=== PATIENT | female | born 1960 | race Caucasian/White ===

== ENCOUNTER 2025-01-04 16:57 | Outpatient (OUT) | payer OTHER, SELFPAY ==
--- OUTSIDE RECORDS SUMMARY | 2023-07-21 05:49 | XMS_ITS | Continuity of Care Document ---
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 Name Role Phone Carlos Ybarra MD, Delvin Unavailable Unavailab le Allergies, Adverse Reactions, Alerts Substance Reaction Status Criticality No Known Allergies Active No Inform ation Medications Medication Instructions Dosage Effective Dates (start - stop) Status Comments Ozempic 2 mg/dose (8 mg/3 mL) subcutaneous pen injector - Active metoprolol tartrate 25 mg tablet - Active sertraline 25 mg tablet - Ac tive omeprazole 20 mg capsule,delayed release - Active levofloxacin 500 mg tablet - Active sulfamethoxazole 800 mg-trimethoprim 160 mg tablet - Active clindamycin HCl 300 mg capsule - Active oxycodone 5 mg tablet - Acti ve metoprolol succinate ER 25 mg tablet,extended release 24 hr - Active tobramycin 0.3 %-dexamethasone 0.1 % eye drops,suspension - Active montelukast 10 mg tablet - A ctive Ozempic 0.25 mg or 0.5 mg (2 mg/3 mL) subcutaneous pen injector - Active Sudafed 30 mg tablet TAKE FOUR TIMES DAILY NEEDED FOR COGESTION - Active Procedures Procedure Date Office/outpatient visit,est, mod 2023 X-RAY EXAM HIP UNI 2-3 VIEWS Office/outpatient visit,est, mod 2022 X-RAY EXAM HIP UNI 2-3 VIEWS Postop followup visit X-RAY EXAM HIP UNI 2-3 VIEWS Recovery Rx Total hip arthroplasty &prosthesis PA Total Hip Arthoplasty & Prosthesis PA Total Hip Arthoplasty & Prosthesis PA Total Hip Arthoplasty & Prosthesis Cane adjust/fixed with tip Walker folding wheeled w/o s Intermittent Compression Device - SELF P AY PT RE-EVAL EST PLAN CARE Therapeutic activities (one on one) Physical Tx excercises, ea 15 min Advance Directives Directive Yes / No Effective Date File Name No Information Encounters Encounter Description Practice Location Reason(s) For Visit Diagnoses Date Provider Providers Copied on Encounter [facility], [facility] [address] [place], [place], [facility] [place], tel:[phone] No Information 4 Carlos Hargrove. [address], [address], [place], [place], [id number] , [place]. tel: [phone] Office/outpa tient visit,est, mod [facility], [address] [place], [address], tel:[phone] [facility] History of right hip replacementUnila teral primary osteoarthritis, right hip 4 Luisito Zarate. [address], [place], [place], [id number] , [place]. tel: [phone] Referring Provider: Delvin Ybarra V, [address], [place], [address] . tel:[phone] Office/outpa tient visit,est, mod [facility], [facility] [place], [address], [place] tel:[phone] [facility] History of right hip replacementUnila teral primary osteoarthritis, right hip 3 Carlos Hargrove. [address], [address], [place], [place], [id number] , [place]. [phone] Referring Provider: Delvin Ybarra V, [address], [place], [address] . tel:[phone], [facility] [place], [place] tel:[phone] [facility] [place] Unilateral primary osteoarthritis, right hipPresence of right artificial hip jointAftercare following joint replacement surgery 2 Lucio Fam. [address], [address], [place], [place], [address] , [place]. tel:[phone] Referring Provider: Delvin Ybarra V, [address], [place], [address] . tel:[phone] [facility], [facility] [place], [address], [place] tel:[phone] [facility] [place] Unilateral primary osteoarthritis, right hip 2 Carlos Hargrove. [address], [address], [place], [place], [id number] , [place]. [phone] Referring Provider: Delvin Ybarra V, [address], [place], [address] . tel:[phone] [facility], [facility] [place], [address], [place] tel:[phone] [facility] No Information 2 Carlos Hargrove. [address], [place], [place], [id number] , [place]. tel:[phone] Referring Provider: Delvin Ybarra V, [address], [place], [address] . tel:[phone] [facility], [address] [place], [address], tel:[phone] No Information 2 Carlos Hargrove. [address], [address], [place], [place], [address] , [place]. tel:[phone] Referring Provider: Delvin Ybarra V, [address], [place], [address] . tel:[phone] [facility], [address] [place], [address], tel:[phone] [address] [place] [address] No Information 2 Rogers Weinstein. [address] [place], [place], [id number] , [place]. tel:[phone] Referring Provider: Delvin Ybarra V, [address], [place], [address] . tel:[phone] Family History Family Member Type Diagnosis Age At Onset No Information Payers Payer name Insurance type Covered constitution party ID [facility] - [id number] Social History Type Description Quantity Date Captured Comments Sex Female Smoking Status No Information Chief Complaint And Reason For Visit No Information Reason For Referral Reason For Referral No Information Plan Of Treatment Date Type Action Status Referral Referred To: [facility] - E1399.1 Ordered: Referrals: [facility] - E1399.1 ordered History Of Present Illness Encounter Date Complaint History Of Prese nt Illness Hip Hip Post-Op Right Hip Comments: Nupur ent S/P RTH 04/12/21 (AVL). Patient had some incision drainage and has been using wet to dry dressing. Patient removed the dressing today and feels much improved. Patient denies any pain. Functional Status Date Functional Assessmen t No Information Instructions Date Instruction Additional Infor mation No Information Assessments Type Assessment Date No Information Patient Care Teams Name Effective Dates (start - stop) Status Members No Information
--- OUTSIDE RECORDS SUMMARY | 2025-01-04 17:07 | XMS_ITS | Patient Health Record ---
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 Name Role Phone Maximiliano Marin DO Primary Care Provider Unavail able Reason For Referral No Information Medications Medication SIG (Take, Route, Frequency, Duration) Notes Start Date End Date Status B Complex Vitamins 1 DAILY ActiveCalcium 600 600 mg1 tablet DAILY ActiveCVS Natural Fish Oil1 capsule DAILY ActiveClaritin-D 12 Hour 5 mg-120 mgtablet, extended [id number] Multiple Vitamins1 DAILY Active Plan Of Treatment No Information Insurance Providers Payer Name Payer Address Payer Phone Subscriber Number Group Number Insured Name Patient Relationship to Insured Coverage Start Date Coverage End Date SELF PAY ON PATIENT DEMOGRAPHICS Jayson Robertoelf - patient is the [id number]/30/2013
--- OUTSIDE RECORDS SUMMARY | 2025-01-04 17:07 | XMS_ITS | Clinical Summary ---
Author Organization [facility] Address [address] [place] [address] Care Team Providers Care Senior Maintenance Technician Name Role Phone HowieMaximiliano rose Primary Care Provider Rosie Ron NP Unavailable [phone] Allergies Active AllergyReactionsCriticalityNoted DateCommentsAmoxicillin-Pot Clavulanate 03/06/20233409Evgsciqsqx36/09/2023 Other Reaction(s): bad dreams Gluten MealDiarrhea,Nausea And McyuqivxPzk76/30/2016 Other Reaction(s): Unknown EfaopcrvjIckugAck21/11/2023 Was ineffective in lowering/managing her A1C. Hvhembarmow18/23/2010 Other Reaction(s): hives Shellfish Vcnfmym6108/24/2021hellfish Protein-Containing Drug ProductsAnaphylaxis High06/23/2009Sulfamethoxazole-QwslqouulvmhTgykYjo56/10/2024Tetracycline 08/09/2022 Other Reaction(s): d/t pseudo tumor Medications MedicationSigDispense QuantityRefillsLast FilledStart DateEnd DateStatus aspirin 81 MG EC tablet Take 81 mg by mouth DailyActive loratadine (Claritin) 10 MG tablet Take 10 mg by mouth DailyActive Bacillus Coagulans-Inulin (Probiotic) 1-250 BILLION-MG capsule 1 (one) time each day at the same timeActive calcium carbonate 1500 (600 Ca) MG tablet 1 (one) time each day at the same timeActive Multiple Vitamins-Minerals (MULTIVITAMIN GUMMIES ADULT PO) Active docusate sodium (Stool Softener) 100 MG capsule Indications:Gastroesophageal reflux disease without esophagitisTake 1 capsule (100 mg) by mouth Daily NEEDED 90 capsule ctive Continuous Glucose Sensor (FreeStyle Dominick 3 Sensor) [facility] [place] 01/16/2024ctive Continuous Glucose Sensor (FreeStyle Dominick 3 Sensor) [facility] [place] 12/15/2023ctive triamcinolone (Kenalog) 0.1 % ointment Indications:Allergic contact dermatitis due to adhesivesApply to affected areas on the arms bid when flared. Avoid the face, armpits, and groin 60 g 5Active triamcinolone (Kenalog) 0.025 % cream Indications:Other seborrheic dermatitisApply to affected areas behind and in the ears, up to twice a day when flared, 5 days on and 2 daysoff 30 g 605Active Mounjaro 15 MG/0.5ML solution auto-injector INJECT 15MG'S UNDER THE SKIN WEEKLY ROTATE INJECTION SITES10/12/2024tive losartan-hydroCHLOROthiazide (Hyzaar) 100-12.5 MG tablet Indications:Essential hypertensionTake 1 tablet by mouth Daily 90 tablet ctive metoprolol tartrate (Lopressor) 25 MG tablet Indications:PVC (premature ventricular contraction)Take 1 tablet (25 mg) by mouth in the morning and 1 tablet (25 mg) before bedtime. 180 tablet tive omeprazole (PriLOSEC) [address] capsule Indications:Gastroesophageal reflux disease without esophagitisTake 1 capsule (20 mg) by mouth 1 (one) time each day at the same time 90 capsule ctive sertraline (Zoloft) 25 MG tablet Indications:Generalized anxiety disorderTake 1 tablet (25 mg) by mouth Daily 90 tablet ctive Active Problems ProblemNoted DateDiagnosed DateAllergic rhinitis due to nadmlgir27/30/2023 Vrhgybq8107/30/2022topic dermatitis, llcmtllejoj74/30/2023hronic sinusitis 07/30/20225962Hequjcfxbsqs10/30/3750Aehdlpvgmgjugn21/30/2023iverticulosis of large intestine without qqaocykmcn64/30/2023Essential epamuegachgc89/30/2023Fatty liver07/30/2022astroesophageal reflux hfqrypf7007/30/2022eneralized anxiety /30/2023Stress dobnvzki88/30/2023H/O: hirrytyrelvh22/30/2023 Yabiklkwfubwsb36/30/4761Krgiqfpntmkrew64/30/2023Increased glucose level 07/30/2022Irritable bowel syndrome without soqqfxou89/30/2788Srcfyqx26/30/2023 Dnzrvmfbhbcacy61/30/6153Arfyzhevdj46/30/2023VC (premature ventricular contraction)07/30/2022Seasonal fneunghwh58/30/0593Ledrouwlhwg11/30/2023Type 2 diabetes mellitus without khlpvtajqrjui82/30/2023iverticulitis of large intestine without perforation or abscess without sgapbnot66/13/2018Obesity (BMI 35.0-39.9 without comorbidity)06/13/2017 Resolved Problems ProblemNoted DateDiagnosed DateResolved DateHip pain Encounters DateTypeDepartmentCare DseoQnkkifqoqnc54/27/2025Results Follow-Up [facility] [address] [place] [phone] Rosie Ron NP CBC and differential, Comprehensive metabolic panel, Hemoglobin A1c, Additional followed-up results: 8:30 AM EDTOffice Visit [facility] [address] [place] [address] Rosie Ron NP Routine general medical examination at a health care facility (Primary Dx); Essential hypertension ; Type 2 diabetes mellitus without complication, without long-term current use of insulin (HCC); Dysuria; Mixed hyperlipidemia ; Encounter for screening for malignant neoplasm of colon; Encounter for screening mammogram for malignant neoplasm of breast; Iron deficiency; Cellulitis of left ear; PVC (premature ventricular contraction); Gastroesophageal reflux disease without esophagitis; Generalized anxiety disorder ; Myopathy, vqyapqntnic37/26/2025amboo flowsheet [facility] [address] [place] [address] Rosie Ron NP 10/26/20247005Yvnkoa18/06/2025[facility]phone [facility] [address] [place] [address] Mary Martinez MA Med Fwbphq8510/05/2024 2:30 PM EDTOffice Visit [facility] [address] [place] [address] Sarah Flores PA Melanocytic nevus of trunk (Primary Dx); Seborrheic keratosis; Dilated pore of Michael; Dermatofibroma of left lower extremity; Allergic contact dermatitis due to adhesives; Other seborrheic ugjajxwhpv56/05/2025amboo flowsheet [facility] [address] [place] [address] Sarah Flores PA 10/05/2024Travelfrom Last 3 Months Immunizations ImmunizationAdministration DatesNext DueInfluenza, Split (incl. purified surface antigen)01/19/2014Influenza, Aemyqwpnhtj85/26/2023,03/16/2019,01/06/2018, 01/19/2014Influenza, injectable, tfxbmaoqwybk82/06/2018Influenza, injectable, quadrivalent, preservative free12/26/2022,03/16/2019,01/06/2018Pneumococcal Conjugate PCV 4Pneumococcal Conjugate, Yxcokcctxwf50/22/2024 Family History Medical HistoryRelationNameCommentsfibroid uterusDaughterdenies celiac and uterine fibroids in father's side of familyAllergiesFatherCancerFatherprostate, lungHeart diseaseFatherCAD, MIHyperlipidemiaFatherHypertensionFatherCancer Father's BrotherDiabetesFather's BrotherHeart diseaseFather's Brothercad HyperlipidemiaFather's BrotherHypertensionFather's BrotherCancerMotherLung cancerHeart diseaseMotherCAD, early MIHypertensionMotherOsteoporosisMother Polymyalgia rheumaticaMotherCancerPaternal GrandfatherCeliac diseaseNeg Hx FibroidsNeg HxMelanomaNeg HxUterine cancerNeg HxRelationNameStatusComments DaughterAliveFatherDeceasedFather's BrotherAliveMaternal GrandfatherDeceased Maternal GrandmotherDeceasedMotherAlivePaternal GrandfatherDeceasedPaternal GrandmotherDeceased Social History Tobacco UseTypesPacks/DayYears UsedDateSmoking Tobacco: NeverSmokeless Tobacco: Never Tobacco Cessation:Counseling Given: Not Answered Alcohol UseStandard Drinks/WeekCommentsNever0 (1 standard drink = 0.6 oz pure alcohol)Caffeine: 2-3 cups/tnpK1040 Health LiteracyAnswerDate RecordedHow often do you need to have someone help you when you read instructions, pamphlets, or other written material from your doctor or pharmacy?Never11/16/2023Humiliation, Afraid, Rape, and Kick questionnaireAnswerDate RecordedWithin the last year, have you been afraid of your partner or ex-partner?No09/30/2022Within the last year, have you been humiliated or emotionally abused in other ways by your partner or ex-partner?Yes09/30/2022Within the last year, have you been kicked, hit, slapped, or otherwise physically hurt by your partner or ex-partner?No 09/30/2022Within the last year, have you been raped or forced to have any kind of sexual activity by your partner or ex-partner?No09/30/2022Social Connection and Isolation PanelAnswerDate RecordedIn a typical week, how many times do you talk on the phone with family, friends, or neighbors?More than three times a week11/16/2023How often do you get together with friends or relatives?Once a week11/16/2023How often do you attend mosque or restorationist services?More than 4 times per year4Do you belong to any clubs or organizations such as mosque groups, unions, fraternal or athletic groups, or school groups?Yes 11/16/2023How often do you attend meetings of the clubs or organizations you belong to?More than 4 times per year4Are you , , , , never , or living with a partner?Bjdifxe1911/16/2023 AUDIT-CAnswerDate RecordedQ1: How often do you have a drink containing alcohol? Monthly or less11/16/2023Q2: How many drinks containing alcohol do you have on a typical day when you are drinking?1 or Q3: How often do you have six or more drinks on one occasion?Never11/16/2023Overall Financial Resource Strain (CARDIA)AnswerDate RecordedHow hard is it for you to pay for the very basics like food, housing, medical care, and heating?Not hard at all11/16/2023HQ-2 AnswerDate RecordedPatient Health Questionnaire-2 Jggdv865[facility] [place] [facility] Occupational [facility] - Occupational Stress QuestionnaireAnswerDate RecordedDo you feel stress - tense, restless, nervous, or anxious, or unable to sleep at night because yourmind is troubled all the time - these days?To some cljhsn8211/16/2023Exercise Vital SignAnswerDate RecordedOn average, how many days per week do you engage in moderate to strenuous exercise (like a brisk walk)?3 days11/16/2023On average, how many minutes do you engage in exercise at this level?40 min11/16/2023Hunger Vital SignAnswerDate RecordedWithin the past 12 months, you worried that your food would run out before you got the money to buy more.Never true11/16/2023Within the past 12 months, the food you bought just didn't last and you didn't have money to get more.Never true11/16/2023RAPARE - TransportationAnswerDate RecordedIn the past 12 months, has lack of transportation kept you from medical appointments or from getting medications?No 11/16/2023In the past 12 months, has lack of transportation kept you from meetings, work, or from getting things needed for daily living?No11/16/2023 Housing Stability Vital SignAnswerDate RecordedIn the last 12 months, was there a time when you were not able to pay the mortgage or rent on time?No09/30/2022In the last 12 months, how many places have you lived?In the last 12 months, was there a time when you did not have a steady place to sleep or slept [facility] (including now)?No09/30/2022Housing Stability Vital SignAnswerDate RecordedIn the last 12 months, was there a time when you were not able to pay the mortgage or rent on time?No11/16/2023In the past 12 months, how many times have you moved where you were living?t any time in the past 12 months, were you homeless or living in a fdc (including now)?11/16/2023 CommentsUnknownSex and Gender InformationValueDate RecordedSex Assigned at BirthNot on fileLegal GodVaahan81/15/2023 7:16 PM EDTGender IdentityNot on fileSexual OrientationNot on file Last Filed Vital Signs Vital SignReadingTime TakenCommentsBlood Zbzthvtt924/8410/26/2024 8:44 AM EDT Cyvgp527910/26/2024 8:44 AM JAYRvdvizigpnt23.6 ??C (97.8 ??F)10/26/2024 8:44 AM EDTRespiratory Vdhp731810/11/2022 7:38 AM EDTOxygen Ldeahxsbek94%10/26/2024 8:44 AM EDTInhaled Oxygen Concentration--Zmtcqw65.6 kg (173 lb 3.2 oz)10/26/2024 8:44 AM ALMGoqciw532.5 cm (5' 2 )10/26/2024 8:44 AM EDTBody Mass Index31.68010/26/2024 8:44 AM EDT Plan of Treatment DateTypeDepartmentCare Team (Latest Contact Info)Zcgksswgqvy62/11/2026 8:50 AM EDTOffice Visit [facility] [address] [facility] [place] [address] Sarah Flores, PA [address] [place] [address] Health MaintenanceDue DateLast DoneCommentsCT Eqbfzjhppizx63/07/1963FIT-DNA 1962FIT1962FOBT1962 4573Rgdcnructiizn51/07/1963MMR Vaccines (1 of 1 - Standard series)06/08/1963DTaP/Tdap/Td Vaccines (1 - Tdap)1969Hepatitis A Vaccines (1 of 2 - Risk 2-dose series)1981Hepatitis B Vaccines (1 of 3 - Risk 3-dose series)06/07/20223308Imtqgxwdzlp10/23/16304904/25/2014Colorectal Cancer Cjekleaxn90/23/5426Cenxexnjt63, 10/16/2023, 04/11/2022, Additional history existsCOVID-19 Vaccine ( season)2024 03/06/2021, 04/09/2020, 03/19/2020Influenza Vaccine (#1), 12/26/2022, 03/16/2019, Additional history existsDiabetes: Hemoglobin A1C /, 05/17/2024, 11/17/2023, Additional history existsDiabetes: Retinopathy Mwmxtfxet62/04/066149/06/2023, 08/29/2021, 08/03/2020, Additional history existsDiabetes: Urine Protein Emwphtygc88/26/485240/, 05/17/2024, 11/17/2023, Additional history existsCervical Cancer ScreeningDiscontinuedPap LpobbAprawempquxh30/09/2019, 07/09/2018Pneumococcal Vaccine: Pediatrics (0 to 5 Years) and At-Risk Patients (6 to 64 Years)Attkrngkb21/22/2024, 05/23/2023HIB VaccinesAged OutNo longer eligible based on patient's age to complete this topic HPV VaccinesAged OutNo longer eligible based on patient's age to complete this topicHPV/CotestDiscontinuedIPV VaccinesAged OutNo longer eligible based on patient's age to complete this topicMeningococcal B VaccineAged OutNo longer eligible based on patient's age to complete this topicMeningococcal VaccineAged OutNo longer eligible based on patient's age to complete this topicRotavirus VaccinesAged OutNo longer eligible based on patient's age to complete this topic Goals GoalPatient Goal TypeAssociated ProblemsRecent ProgressPatient-Stated?Author Help patient manage antidepressant medication Care PlanPatient on antidepressant monitoring Mary Beth Keene, SHERRI Baseline PHQ-9 Care PlanBaseline PHQ-9Mary Beth Gonzalez RN Procedures Procedure NamePriorityDate/TimeAssociated UftwsbbvgRvxfvojkYBGNChqyjvq45/26/2025 9:02 AM EDT IRON, JAPBQPhwusam31/26/2025 9:02 AM EDT Iron deficiency URINALYSIS TUQTAHNjcnbdl69/26/2025 9:02 AM EDT Routine general medical examination at a [facility] Essential hypertension Type 2 diabetes mellitus without complication, without long-term current use of insulin (HCC) Dysuria Mixed hyperlipidemia KFGTztzfbm94/26/2025 9:02 AM EDT Routine general medical examination at a [facility] facility Essential hypertension Type 2 diabetes mellitus without complication, without long-term current use of insulin (HCC) Dysuria Mixed hyperlipidemia MICROALBUMIN / CREATININE URINE HPLBPNblrrcl95/26/2025 9:02 AM EDT Routine general medical examination at a [facility] facility Essential hypertension Type 2 diabetes mellitus without complication, without long-term current use of insulin (HCC) Dysuria Mixed hyperlipidemia LIPID UPAIRMdxugfo34/26/2025 9:02 AM EDT Routine general medical examination at a [facility] Essential hypertension Type 2 diabetes mellitus without complication, without long-term current use of insulin (HCC) Dysuria Mixed hyperlipidemia HEMOGLOBIN X9DQkenika94/26/2025 9:02 AM EDT Routine general medical examination at a [facility] Essential hypertension Type 2 diabetes mellitus without complication, without long-term current use of insulin (HCC) Dysuria Mixed hyperlipidemia COMPREHENSIVE METABOLIC VLGCKYzqraau20/26/2025 9:02 AM EDT Routine general medical examination at a [facility] Essential hypertension Type 2 diabetes mellitus without complication, without long-term current use of insulin (HCC) Dysuria Mixed hyperlipidemia CBC (INCLUDES DIFF/PLT)Cqefozp5010/26/2024 9:02 AM EDT Routine general medical examination at a health care facility Essential hypertension Type 2 diabetes mellitus without complication, without long-term current use of insulin (HCC) Dysuria Mixed hyperlipidemia BI MAMMOGRAM SCREENING TOMOSYNTHESIS NEGODEIHWHamnqub64/09/2023 COLOR FUNDUS PHOTOGRAPHY - OU - BOTH LLCPFfjvtpq15/29/2022 12:00 PM EDT PCMTSLNKXSDTkbdjsd88/23/2015 12:00 PM EST from Last 3 Months or Most Recently Relevant to Health Maintenance Results * NOTE (10/26/2024 9:02 AM EDT)ComponentValueRef RangeTest MethodAnalysis Time Performed AtPathologist SignatureNOTEQUESTComment: This urine was analyzed for the presence of WBC, RBC, bacteria, casts, and other formed elements. Only those elements seen were reported. Specimen (Source)Anatomical Location / LateralityCollection Method / Volume Collection TimeReceived Time10/26/2024 9:02 AM EDT10/26/2024 9:02 AM EDT Narrative [facility] - 10/27/2024 12:35 PM EDT FASTING:YES FASTING: YES Resulting Agency Comment Performing Organization Information ?Site ID: QPT ?Name: [facility] ?Address: [address] [place] [address], [address] [place] [phone] ?Director: Abdulaziz Santos MD Authorizing ProviderResult TypeResult StatusRachel E Fruth NPQUESTFinal Result Performing OrganizationAddressCity/State/ZIP CodePhone Number [facility] * Microalbumin / creatinine urine ratio (10/26/2024 9:02 AM EDT)ComponentValue Ref RangeTest MethodAnalysis TimePerformed AtPathologist SignatureCREATININE, RANDOM [id number] - 275 mg/dLQUESTALBUMIN, URINE1.3See Note: mg/dLQUEST Comment: Reference Range: Reference Range Not established ALBUMIN/CREATININE RATIO, RANDOM URINE5<30 mg/g creatQUESTComment: The ADA defines abnormalities in albumin excretion as follows: Albuminuria Category ?Result (mg/g creatinine) Normal to Mildly increased <30 Moderately increased ? 30-299 Severely increased > OR = 300 The ADA recommends that at least two of three specimens collected within a 3-6 month period be abnormal before considering a patient to be within a diagnostic category. Specimen (Source)Anatomical Location / LateralityCollection Method / Volume Collection TimeReceived TimeUrineUrine specimen obtained by clean catch procedure / Bouiwvm9710/26/2024 9:02 AM EDT10/26/2024 9:02 AM EDT Narrative [facility] - 10/27/2024 12:35 PM EDT FASTING:YES FASTING: YES Resulting Agency Comment Performing Organization Information ?Site ID: QPT ?Name: [email or web address] ?Address: [address] [place] [address], [address] [place] [phone] ?Director: Abdulaziz Santos MD Authorizing ProviderResult TypeResult StatusRachel E Fruth NPLAB URINE ORDERABLESFinal ResultPerforming OrganizationAddressCity/State/[facility] CodePhone Number [facility] * (ABNORMAL) Urinalysis with reflex microscopic (10/26/2024 9:02 AM EDT) ComponentValueRef RangeTest MethodAnalysis TimePerformed AtPathologist SignatureCOLORDARK YELLOWYELLOWQUESTAPPEARANCECLOUDY(A)CLEARQUESTSPECIFIC GRAVITY1.0311.001 - 1.035QUESTPH< OR = 5.0(A)5.0 - 8.0QUESTGLUCOSENEGATIVE NEGATIVEQUESTBILIRUBINNEGATIVENEGATIVEQUESTKETONESNEGATIVENEGATIVEQUESTOCCULT BLOODNEGATIVENEGATIVEQUESTPROTEINTRACE(A)NEGATIVEQUESTNITRITENEGATIVENEGATIVE QUESTLEUKOCYTE ESTERASENEGATIVENEGATIVEQUESTWBCNONE SEEN< OR = 5 /HPFQUESTRBC NONE SEEN< OR = 2 /HPFQUESTSQUAMOUS EPITHELIAL CELLS0-5< OR = 5 /HPFQUEST BACTERIANONE SEENNONE SEEN /HPFQUESTHYALINE CASTNONE SEENNONE SEEN /LPFQUEST Specimen (Source)Anatomical Location / LateralityCollection Method / Volume Collection TimeReceived TimeUrineUrine specimen obtained by clean catch procedure / Ltzwmzq6410/26/2024 9:02 AM EDT10/26/2024 9:02 AM EDT Narrative [facility] - 10/27/2024 12:35 PM EDT FASTING:YES FASTING: YES Resulting Agency Comment Performing Organization Information ?Site ID: QPT ?Name: [facility] ?Address: [address], [address] [place] [phone] ?Director: Abdulaziz Santos MD Authorizing ProviderResult TypeResult StatusRachel E Fruth NPLAB URINE ORDERABLESFinal ResultPerforming OrganizationAddressCity/State/ZIP CodePhone Number [facility] * (ABNORMAL) CBC and differential (10/26/2024 9:02 AM EDT)ComponentValueRef RangeTest MethodAnalysis TimePerformed AtPathologist SignatureWHITE BLOOD CELL COUNT5.23.8 - 10.8 Thousand/uLQUESTRED BLOOD CELL COUNT4.463.80 - 5.10 Million/mPBOROODTXQJORKHT47.911.7 - 15.5 g/bSRYKBKXUKWQQFLJA63.935.0 - 45.0 % EUXFCWMP92.780.0 - 100.0 cXCPZIBSNV46.927.0 - 33.0 eeUDILMXLIG24.5(L)32.0 - 36.0 g/dLQUESTComment: For adults, a slight decrease in the calculated MCHC value (in the range of 30 to 32 g/dL) is most likely not clinically significant; however, it should be interpreted with caution in correlation with other red cell parameters and the patient's clinical condition. RDW13.411.0 - 15.0 %QUESTPLATELET VBQAA671119 - 400 Thousand/uLQUESTMPV8.97.5 - 12.5 fLQUESTABSOLUTE NEUTROPHILS2,6621,500 - 7,800 cells/uLQUESTABSOLUTE LYMPHOCYTES1,886568 - 3,900 cells/uLQUESTABSOLUTE RZLVZECGB555029 - 950 cells/uL QUESTABSOLUTE JJORTHCBUHF57925 - 500 cells/uLQUESTABSOLUTE YHOHRHJBL850 - 200 cells/uTRQXPEQRMDYSSVVRU40.2%MUDBWSXDVDHNCKLJ67.5%QUESTMONOCYTES6.9%QUEST EOSINOPHILS5.2%QUESTBASOPHILS1.2%QUESTSpecimen (Source)Anatomical Location / LateralityCollection Method / VolumeCollection TimeReceived TimeBloodVenous blood specimen / Chkfcib4810/26/2024 9:02 AM EDT10/26/2024 9:02 AM EDT Narrative [facility] - 10/27/2024 12:35 PM EDT FASTING:YES FASTING: YES Resulting Agency Comment Performing Organization Information ?Site ID: QPT ?Name: [facility] ?Address: [address] [place] [address], [address] [place] [address] ?Director: Abdulaziz Santos MD Authorizing ProviderResult TypeResult StatusRachel E Fruth NPLAB BLOOD ORDERABLESFinal ResultPerforming OrganizationAddressty/State/[facility] CodePhone Number [facility] * TSH (10/26/2024 9:02 AM EDT)ComponentValueRef RangeTest MethodAnalysis Time Performed AtPathologist SignatureTSH1.280.40 - 4.50 mIU/LQUESTSpecimen (Source)Anatomical Location / LateralityCollection Method / VolumeCollection TimeReceived TimeBloodVenous blood specimen / Dluvjhj8810/26/2024 9:02 AM EDT 10/26/2024 9:02 AM EDT Narrative [facility] - 10/27/2024 12:35 PM EDT FASTING:YES FASTING: YES Resulting Agency Comment Performing Organization Information ?Site ID: QPT ?Name: [facility] ?Address: [address] [place] [address], [address] [place] [address] ?Director: Abdulaziz Santos MD Authorizing ProviderResult TypeResult StatusRachel E Fruth NPLAB BLOOD ORDERABLESFinal ResultPerforming OrganizationAddPrime Healthcare Servicesty/[facility]/ZIP CodePhone Number [facility] * Iron level (10/26/2024 9:02 AM EDT)ComponentValueRef RangeTest MethodAnalysis TimePerformed AtPathologist SignatureIRON, MDHPV5713 - 160 mcg/dLQUESTSpecimen (Source)Anatomical Location / LateralityCollection Method / VolumeCollection TimeReceived TimeBloodVenous blood specimen / Zervpte0410/26/2024 9:02 AM EDT 10/26/2024 9:02 AM EDT Narrative [facility] - 10/27/2024 12:35 PM EDT FASTING:YES FASTING: YES Resulting Agency Comment Performing Organization Information ?Site ID: QPT ?Name: [facility] ?Address: [address] [place] [address] ?Director: Abdulaziz Santos MD Authorizing ProviderResult TypeResult StatusRachel E Fruth NPLAB BLOOD ORDERABLESFinal ResultPerforming OrganizationAddressty/[facility] CodePhone Number [facility] * Hemoglobin A1c (10/26/2024 9:02 AM EDT)ComponentValueRef RangeTest Method Analysis TimePerformed AtPathologist SignatureHemoglobin A1C5.5<5.7 %QUEST Comment: For the purpose of screening for the presence of diabetes: <5.7% Consistent with the absence of diabetes 5.7-6.4% ?Consistent with increased risk for diabetes ?(prediabetes) > or =6.5% Consistent with diabetes This assay result is consistent with a decreased risk of diabetes. Currently, no consensus exists regarding use of hemoglobin A1c for diagnosis of diabetes in children. According to [place] [employer] (ADA) guidelines, hemoglobin A1c <7.0% represents optimal control in non- diabetic patients. Different metrics may apply to specific patient populations. Standards of Medical Care in Diabetes(ADA). ?? Specimen (Source)Anatomical Location / LateralityCollection Method / Volume Collection TimeReceived TimeBloodVenous blood specimen / Hflaoaf6910/26/2024 9:02 AM EDT10/26/2024 9:02 AM EDT Narrative [facility] - 10/27/2024 12:35 PM EDT FASTING:YES FASTING: YES Resulting Agency Comment Performing Organization Information ?Site ID: QPT ?Name: [facility] ?Address: Mara Lundy , [address] [place] [address] ?Director: Abdulaziz Santos MD Authorizing ProviderResult TypeResult StatusRachel E Fruth NPLAB BLOOD ORDERABLESFinal ResultPerforming OrganizationAddressCity/State/ZIP CodePhone Number QUEST * (ABNORMAL) Lipid panel (10/26/2024 9:02 AM EDT)ComponentValueRef RangeTest MethodAnalysis TimePerformed AtPathologist SignatureCHOLESTEROL, BOXAD855<200 mg/dLQUESTHDL STRZZGHHBRC28> OR = 50 mg/oFWZTXEAIOAGACWOZFBT535(H)<150 mg/dL QUESTComment: If a non-fasting specimen was collected, consider repeat triglyceride testing on a fasting specimen if clinically indicated. Osvaldo et al. J. of Clin. Lipidol. 2015;9:129-169. LDL THGQOJVSLEN65ed/dL (calc)QUESTComment: Reference range: <100 Desirable range <100 mg/dL for primary prevention; <70 mg/dL for patients with CHD or diabetic patients with > or = 2 CHD risk factors. LDL-C is now calculated using the Jose calculation, which is a validated novel method providing better accuracy than the Friedewald equation in the estimation of LDL-C. Juan TOVAR et al. NELLY. 2013;310(19): 6128-7530 (http://education.[employer].myinfoQ/faq/BCG555) CHOL/HDLC RATIO3.3<5.0 (calc)QUESTNON HDL YVKPODEJMDZ960<130 mg/dL (calc)QUEST Comment: For patients with diabetes plus 1 major ASCVD risk factor, treating to a non-HDL-C goal of <100 mg/dL (LDL-C of <70 mg/dL) is considered a therapeutic option. Specimen (Source)Anatomical Location / LateralityCollection Method / Volume Collection TimeReceived TimeBloodVenous blood specimen / Qxqfqly2610/26/2024 9:02 AM EDT10/26/2024 9:02 AM EDT Narrative [facility]ST - 10/27/2024 12:35 PM EDT FASTING:YES FASTING: YES Resulting Agency Comment Performing Organization Information ?Site ID: QPT ?Name: [facility] ?Address: [address] [place] [address], [address] [place] [phone] ?Director: Abdulaziz Santos MD Authorizing ProviderResult TypeResult StatusRachel E Fruth NPLAB BLOOD ORDERABLESFinal ResultPerforming OrganizationAddressCity/State/ZIP CodePhone Number QUEST * (ABNORMAL) Comprehensive metabolic panel (10/26/2024 9:02 AM EDT)Component ValueRef RangeTest MethodAnalysis TimePerformed AtPathologist SignatureGlucose 141(H)65 - 99 mg/dLQUESTComment: ? Fasting reference interval For someone without known diabetes, a glucose value >125 mg/dL indicates that they may have diabetes and this should be confirmed with a follow-up test. IRF686 - 25 mg/dLQUESTCreatinine0.630.50 - 1.05 mg/gLNXOIWIFIG901> OR = 60 mL/min/1.92q6XJLLWRRQ/CREATININE RATIOSEE NOTE: (calc)QUESTComment: ?? Not Reported: BUN and Creatinine are within ?? reference range. ? Gopxxc443986 - 146 mmol/LQUESTPotassium, Bld4.13.5 - 5.3 mmol/DMZQSIEnxxsqaq107 98 - 110 mmol/LQUESTCarbon Sdjdcrd1704 - 32 mmol/LQUESTCalcium9.38.6 - 10.4 mg/dLQUESTPROTEIN, TOTAL7.06.1 - 8.1 g/dLQUESTALBUMIN4.53.6 - 5.1 g/dLQUEST GLOBULIN2.51.9 - 3.7 g/dL (calc)QUESTALBUMIN/GLOBULIN RATIO1.81.0 - 2.5 (calc) QUESTBILIRUBIN, TOTAL0.30.2 - 1.2 mg/dLQUESTALKALINE MPLYSRKSLGS0286 - 153 U/L VUZIKORY3962 - 35 U/RFXQBBCMW806 - 29 U/LQUESTSpecimen (Source)Anatomical Location / LateralityCollection Method / VolumeCollection TimeReceived TimeBlood Venous blood specimen / Siltgcm4910/26/2024 9:02 AM EDT10/26/2024 9:02 AM EDT Narrative [facility] - 10/27/2024 12:35 PM EDT FASTING:YES FASTING: YES Resulting Agency Comment Performing Organization Information ?Site ID: QPT ?Name: [facility] ?Address: [address] [place] [address], [address] [place] [phone] ?Director: Abdulaziz Santos MD Authorizing ProviderResult TypeResult StatusRachel E Fruth NPLAB BLOOD ORDERABLESFinal ResultPerforming OrganizationAddressCity/State/ZIP CodePhone Number QUEST * Bilateral screening mammogram with tomosynthesis (04/11/2022)Anatomical Region LateralityModalityBreastBilateralMammographySpecimen (Source)Anatomical Location / LateralityCollection Method / VolumeCollection TimeReceived Time Narrative 04/11/2022 12:00 AM EST PERFORMED AT [facility] LOCATION:[place] [address] Performed at: EXAMINATION: SCREENING DIGITAL BILATERAL MAMMOGRAM WITH TOMOSYNTHESIS 04/10/2022 TECHNIQUE: Screening mammography was performed with tomosynthesis including MLO and CC views of the bilateral breasts. Computer aided detection was used for the interpretation of this exam. COMPARISON: 05 April 2020; 17 November 2018 HISTORY: Screening. Positive family history of breast cancer; mother at 81 sister at 57 and daughter at 36 with breast cancer.No hormonal replacement therapy. ??No prior breast interventions. FINDINGS: The breasts are composed of scattered fibroglandular density. ??No skin thickening nipple contour changes suspicious calcifications areas of architectural distortion or significant interval changes are noted. IMPRESSION: No evidence of malignancy. ??Advise annual screening mammography. BI-RADS 1 BIRADS: BIRADS - CATEGORY 1 Negative no evidence of malignancy. ??Normal interval follow-up is recommended in 12 months. OVERALL ASSESSMENT - NEGATIVE A letter of notification will be sent to the patient regarding the results. The [employer] recommends annual mammograms for women 40 years and older. Interpreted by: Venus Miller MD Signed by: Venus Miller MD 04/11/[address] [place] [id number] Procedure Note CONVERSION, GENERIC - 09/06/2022 PERFORMED AT [facility] LOCATION:[place] [address] Performed at: EXAMINATION: SCREENING DIGITAL BILATERAL MAMMOGRAM WITH TOMOSYNTHESIS 04/10/2022 TECHNIQUE: Screening mammography was performed with tomosynthesis including MLO andCC views of the bilateral breasts. Computer aided detection was used forthe interpretation of this exam. COMPARISON: 05 April 2020; 17 November 2018 HISTORY: Screening. Positive family history of breast cancer; mother at 81 sisterat 57 and daughter at 36 with breast cancer.No hormonal replacement therapy.No prior breast interventions. FINDINGS: The breasts are composed of scattered fibroglandular density. No skin thickening nipple contour changes suspicious calcifications areas of architectural distortion or significant interval changes are noted. IMPRESSION: No evidence of malignancy. Advise annual screening mammography. BI-RADS 1 BIRADS: BIRADS - CATEGORY 1 Negative no evidence of malignancy. Normal interval follow-up is recommended in 12 months. OVERALL ASSESSMENT - NEGATIVE A letter of notification will be sent to the patient regarding theresults. The [employer] recommends annual mammograms for women40 years and older. Interpreted by: Venus Miller MD Signed by: Venus Miller MD 04/11/[address] [place] [phone] Authorizing ProviderResult TypeResult StatusRachel E Fruth NPIMG BI PROCEDURES Final Result * Color Fundus Photography - OU - Both Eyes (08/29/2021 12:00 PM EDT)Anatomical RegionLateralityModalityHeadFundus PhotographySpecimen (Source)Anatomical Location / LateralityCollection Method / VolumeCollection TimeReceived Time 08/29/2021 12:00 PM EDT Narrative 08/29/2021 12:00 PM EDT PERFORMED AT [facility] LOCATION:[id number] [facility] Procedure Note CONVERSION, GENERIC - 07/17/2022 PERFORMED AT [facility] LOCATION:[id number] [facility] Authorizing ProviderResult TypeResult StatusRachel E Fruth NPOPHTH PHOTOGRAPHY Final Result * Colonoscopy (04/25/2014 12:00 PM EST)Anatomical RegionLateralityModality EndoscopySpecimen (Source)Anatomical Location / LateralityCollection Method / VolumeCollection TimeReceived Time04/25/2014 12:00 PM EST Narrative 04/25/2014 12:00 PM EST PERFORMED AT [facility] LOCATION:[id number] [facility] Procedure Note CONVERSION, GENERIC - 07/18/2022 PERFORMED AT [facility] LOCATION:[id number] [facility] Authorizing ProviderResult TypeResult StatusGerri Ariane Murphy NPENDOSCOPY PROCEDURE ORDERABLESFinal Result from Last 3 Months or Most Recently Relevant to Health Maintenance Additional Health Concerns Active ProblemsNoted DateDiagnosed DatePatient on antidepressant monitoring plan 07/14/2023aseline PHQ-9007/14/2023 Insurance Care Teams Team MemberRelationshipSpecialtyStart DateEnd Date Maximiliano Denise DO [address] [place] [address] PCP - GeneralFamily Medicine08/08/22 Rosie Ron NP [address] [place] [address] Nurse PractitionerFamily Medicine08/08/22
--- OUTSIDE RECORDS SUMMARY | 2025-01-04 17:07 | XMS_ITS | Encounter Summary ---
Author Organization [facility] Address [address] [place] [address] Care Team Providers Care Professor Of French Name Role Phone HowieMaximiliano rose Primary Care Provider Rosie Ron PAIN MEDICINE PHYSICIAN Unavailable [phone] Encounter Details DateTypeDepartmentCare Team (Latest Contact Info)Ppzrjexdaqf67/15/2024Clinisync Result Encounter [facility] Unsolicited Rosie Ron, PAIN MEDICINE PHYSICIAN [address] [place] [address] Social History Tobacco UseTypesPacks/DayYears UsedDateSmoking Tobacco: NeverSmokeless Tobacco: NeverAlcohol UseStandard Drinks/WeekCommentsNever0 (1 standard drink = 0.6 oz pure alcohol)Caffeine: 2-3 cups/tmjD8828 Health LiteracyAnswerDate RecordedHow often do you need to have someone help you when you read instructions, pamphlets, or other written material from your doctor or pharmacy?Never 11/16/2023Humiliation, Afraid, Rape, and Kick questionnaireAnswerDate Recorded Within the last year, have you been afraid of your partner or ex-partner?No 09/30/2022Within the last year, have you been humiliated or emotionally abused in other ways by your partner or ex-partner?Yes09/30/2022Within the last year, have you been kicked, hit, slapped, or otherwise physically hurt by your partner or ex-partner?No09/30/2022Within the last year, have you been raped or forced to have any kind of sexual activity by your partner or ex-partner?No09/30/2022 Social Connection and Isolation PanelAnswerDate RecordedIn a typical week, how many times do you talk on the phone with family, friends, or neighbors?More than three times a week11/16/2023How often do you get together with friends or relatives?Once a week11/16/2023How often do you attend denominational or rastafarian services?More than 4 times per year11/16/2023o you belong to any clubs or organizations such as denominational groups, unions, fraternal or athletic groups, or school groups?Yes11/16/2023How often do you attend meetings of the clubs or organizations you belong to?More than 4 times per year11/16/2023re you , , , , never , or living with a partner? 11/16/2023UDIT-CAnswerDate RecordedQ1: How often do you have a drink containing alcohol?Monthly or less11/16/2023Q2: How many drinks containing alcohol do you have on a typical day when you are drinking?1 or Q3: How often do you have six or more drinks on one occasion?Never11/16/2023Overall Financial Resource Strain (CARDIA)AnswerDate RecordedHow hard is it for you to pay for the very basics like food, housing, medical care, and heating?Not hard at all 11/16/2023HQ-2AnswerDate RecordedPatient Health Questionnaire-2 Score0 04/13/2024[facility] [place] [facility] Occup[facility] - Occupational Stress QuestionnaireAnswerDate RecordedDo you feel stress - tense, restless, nervous, or anxious, or unable to sleep at night because yourmind is troubled all the time - these days?To some dhbhun3011/16/2023Exercise Vital SignAnswerDate Recorded On average, how many days per week do you engage in moderate to strenuous exercise (like a brisk walk)?3 days11/16/2023On average, how many minutes do you engage in exercise at this level?40 min11/16/2023Hunger Vital SignAnswerDate RecordedWithin the past 12 months, you worried that your food would run out before you got the money to buymore.Never true11/16/2023Within the past 12 months, the food you bought just didn't last and you didn't have money to get more.Never true11/16/2023RAPARE - TransportationAnswerDate RecordedIn the past 12 months, has lack of transportation kept you from medical appointments or from getting medications?No11/16/2023In the past 12 months, has lack of transportation kept you from meetings, work, or from getting things needed for daily living?No11/16/2023Housing Stability Vital SignAnswerDate RecordedIn the last 12 months, was there a time when you were not able to pay the mortgage or rent on time?No09/30/2022In the last 12 months, how many places have you lived?1 09/30/2022In the last 12 months, was there a time when you did not have a steady place to sleep or slept in [facility] (including now)?No09/30/2022Housing Stability Vital SignAnswerDate RecordedIn the last 12 months, was there a time when you were not able to pay the mortgage or rent on time?No11/16/2023In the past 12 months, how many times have you moved where you were living? At any time in the past 12 months, were you homeless or living in a fdc (including now)?No11/16/2023CommentsUnknownSex and Gender Information ValueDate RecordedSex Assigned at BirthNot on fileLegal PjuJuazjz54/15/2023 7:16 PM EDTGender IdentityNot on fileSexual OrientationNot on filedocumented as of this encounter Functional Status * AUDIT-C ScoreAnswerDate of QnivvklapxPznuzi066/15/2024 9:00 AM Maximo, Generic * Q1: How often do you have a drink containing alcohol?AnswerDate of Assessment AuthorMonthly or less11/16/2023 9:00 AM Maximo Generic * Q2: How many drinks containing alcohol do you have on a typical day when you are drinking?AnswerDate of AssessmentAuthor1 or 9:00 AM EDT Mychart, Generic * Q3: How often do you have six or more drinks on one occasion?AnswerDate of QfwxyeujqwCuoqqqCmcig24/15/2024 9:00 AM EDTMychart, Generic * Over the past 2 weeks, how often have you been bothered by any of the following problems?QuestionAnswerDate of AssessmentAuthorLittle interest or pleasure in doing thingsNot at all04/13/2024 3:38 PM Rosie Awad NP Feeling down, depressed, or hopelessNot at all04/13/2024 3:38 PM Rosie Awad NPPatient Health Questionnaire-2 Tjtat773 3:38 PM Rosie Awad NP documented as of this encounter Plan of Treatment DateTypeDepartmentCare Team (Latest Contact Info)Mxqgsnwsolg75/11/2026 8:50 AM EDTOffice Visit [facility] [address] [place] [id number] Sarah [place], [place] [address] [place] [address] documented as of this encounter Goals GoalPatient Goal TypeAssociated ProblemsRecent ProgressPatient-Stated?Author Help patient manage antidepressant medication Care PlanPatient on antidepressant monitoring Mary Beth Keene RN Baseline PHQ-9 Care PlanBaseline PHQ-9Mary Beth Gonzalez RNdocumented as of this encounter Procedures Procedure NamePriorityDate/TimeAssociated DiagnosisCommentsMAM BENIGNO DIGITAL SCREEN SELF REFERRAL W OR WO CAD XEBZNVDVL55/15/2024 6:28 PM EDT documented in this encounter Results * CLAY BENIGNO DIGITAL SCREEN SELF REFERRAL W OR WO CAD BILATERAL (10/16/2023 6:28 PM EDT)Anatomical RegionLateralityModalityOtherSpecimen (Source)Anatomical Location / LateralityCollection Method / VolumeCollection TimeReceived Time 10/16/2023 6:28 PM EDT Narrative 10/16/2023 6:31 PM EDT EXAMINATION: SCREENING DIGITAL BILATERAL MAMMOGRAM WITH TOMOSYNTHESIS, 10/16/2023 TECHNIQUE: Screening mammography of the bilateral breasts was performed with tomosynthesis. ??2D standard and 3D tomosynthesis combination imaging performed through both breasts in the MLO and CC projection. ??Computer aided detection was utilized in the interpretation of this exam. COMPARISON: 10 April 2022; 05 April 2020 HISTORY: Screening. Negative family history of breast cancer. ??5 year history of oral contraception. ??No prior breast interventions. FINDINGS: Both breasts are composed of scattered fibroglandular density. ??No skin thickening, nipple contour changes, suspicious calcifications, suspicious masses, areas of architectural distortion or significant interval changes are noted. IMPRESSION: No evidence of malignancy. ??Advise annual screening mammography. BI-RADS 1 BIRADS: BIRADS - CATEGORY 1 Negative, no evidence of malignancy. ??Normal interval follow-up is recommended in 12 months. OVERALL ASSESSMENT - NEGATIVE A letter of notification will be sent to the patient regarding the results. [employer] recommends annual mammograms for women 40 years and older. Interpreted by: Venus Miller MD Signed by: Venus Miller MD 10/16/23 Final result Procedure Note Radiology, Radiologist, - 10/16/2023 EXAMINATION: SCREENING DIGITAL BILATERAL MAMMOGRAM WITH TOMOSYNTHESIS, 10/16/2023 TECHNIQUE: Screening mammography of the bilateral breasts was performed with tomosynthesis. 2D standard and 3D tomosynthesis combination imaging performed through both breasts in the MLO and CC projection. Computeraided detection was utilized in the interpretation of this exam. COMPARISON: 10 April 2022; 05 April 2020 HISTORY: Screening. Negative family history of breast cancer. 5 year history oforal contraception. No prior breast interventions. FINDINGS: Both breasts are composed of scattered fibroglandular density. No skin thickening, nipple contour changes, suspicious calcifications,suspicious masses, areas of architectural distortion or significant interval changesare noted. IMPRESSION: No evidence of malignancy. Advise annual screening mammography. BI-RADS 1 BIRADS: BIRADS - CATEGORY 1 Negative, no evidence of malignancy. Normal interval follow-up is recommended in 12 months. OVERALL ASSESSMENT - NEGATIVE A letter of notification will be sent to the patient regarding theresults. The [employer] recommends annual mammograms for women40 years and older. Interpreted by: Venus Miller MD Signed by: Venus Miller MD 10/16/23 Final result Authorizing ProviderResult TypeResult StatusRachel Tom Ron NPCLINISYNC IMAGING Final Result documented in this encounter Visit Diagnoses Not on filedocumented in this encounter Additional Health Concerns Active ProblemsNoted DateDiagnosed DatePatient on antidepressant monitoring plan 4Baseline PHQ-904documented as of this encounter Care Teams Team MemberRelationshipSpecialtyStart DateEnd Date Maximiliano Denise DO [address] [place], [place] [id number] PCP - GeneralFamily Medicine08/08/22 Rosie Ron NP [address] [place] [address] Nurse PractitionerFamily Medicine08/08/22documented as of this encounter
--- OUTSIDE RECORDS SUMMARY | 2025-01-04 17:08 | XMS_ITS | Clinical Summary ---
Author Organization [employer] [facility] [employer] Address [id number] [address] [place] [address] Care Team Providers Care Hot Packer Name Role Phone Unavailable Primary Care Provider Unavailabl e Allergies Active AllergyReactionsCriticalityNoted YfbyMlnsgsoqOfhzik59/24/2022hellfish Bdlskqc1208/24/2021 Medications MedicationSigDispense QuantityRefillsLast FilledStart DateEnd DateStatus ALPRAZolam (XANAX) 0.25 mg tablet 07/26/2021ctive calcium citrate-vitamin D3 (CITRACAL MAXIMUM) 315-250 mg-units per tablet Take 1 tablet by mouth.Active docosahexaenoic acid-epa 120-180 mg capsule Take 1 capsule by mouth daily.Active fluticasone propionate (FLONASE) 50 mcg/actuation nasal spray Administer 1 spray into each nostril.Active hydroCHLOROthiazide (HYDRODIURIL) 12.5 mg tablet 07/15/2021ctive loratadine (CLARITIN) 10 mg tablet Take 10 mg by mouth.Active losartan (COZAAR) 50 mg tablet 07/13/2021ctive losartan-hydroCHLOROthiazide (HYZAAR) 100-12.5 mg per tablet Take 1 tablet by mouth in the morning.Active metFORMIN XR (GLUCOPHAGE XR) 500 mg 24 hr tablet 07/23/2021ctive metoprolol tartrate (LOPRESSOR) 25 mg tablet 07/13/2021ctive omeprazole (PriLOSEC) 20 mg capsule 06/28/2021ctive psyllium (METAMUCIL SMOOTH TEXTURE) 3.4 gram packet Take 1 packet by mouth.Active sertraline (ZOLOFT) 25 mg tablet Take 25 mg by mouth in the morning.Active aspirin 81 mg Take 81 mg by mouth in the morning.Active Active Problems No known active problems Social History Tobacco UseTypesPacks/DayYears UsedDateSmoking Tobacco: NeverSmokeless Tobacco: NeverChildcareAnswerDate OhqekzveFscqnpqzvIgjuvzj96/10/2019EmploymentAnswerDate DigdraomWquwatgvruPtgpwsd56/10/2019CommentsUnknownSex and Gender InformationValueDate RecordedSex Assigned at BirthNot on fileLegal SexFemale 10/04/2014 4:04 PM EDTGender IdentityNot on fileSexual OrientationNot on file Last Filed Vital Signs Vital SignReadingTime TakenCommentsBlood Ztnxlnak584/72008/22/2014 10:36 AM EDT Pulse--Temperature--Respiratory Rate--Oxygen Saturation--Inhaled Oxygen Concentration--Evtzfu12.4 kg (197 lb 3.2 oz)08/22/2014 10:36 AM ILGJabiht627.5 cm (5' 2 )08/22/2014 10:36 AM EDTBody Mass Index36.0708/22/2014 10:36 AM EDT Plan of Treatment Health MaintenanceDue DateLast DoneCommentsDepression Gkgypuhmd19/07/1975Tobacco Fqmmxyrfm17/07/1975Adult BMI Agloubuyv39/07/1981DTaP,Tdap and Td Vaccines (1 - Tdap)1981Pap Smear06/08/1983Zoster (Shingles) Vaccine (1 of 2)2012 COVID-19 Vaccine ( season)501/06/2021, 04/09/2020, 03/19/2020Influenza Jlukrha20RSV ( or age 60+ yrs) (1 - 1-dose 75+ series)2037 [employer] Not on file Insurance
--- OUTSIDE RECORDS SUMMARY | 2025-01-04 17:08 | XMS_ITS | Patient Health Record ---
Author Organization [facility] Address [address] [place] [address] Care Team Providers Care Joint Setter Name Role Phone Rosie Ron Primary Care Provider Unavailabl e Allergies Allergen (clinical drug ingredient) Drug/Non Drug Allergy documented on EMR Reaction Allergy Type Onset Date Status [place] CORN (uncoded) Unknown Allergy ActiveSHELLFISH DERIVED (uncoded)UnknownAllergyActivePENICILLIN GUnknownDrug AllergyActiveGLUTENUnknownDrug AllergyActive Reason For Referral No Information Medications Medication SIG (Take, Route, Frequency, Duration) Notes Start Date End Date Status Multivitamin multiple vitamins 1 daily ORAL MULTIVITAMINS Active Claritin-D 12 Hour 5 mg-120 mg ORAL CLARITIN-D 12 HOUR Active Fish Oil 1 daily ORAL FISH OIL Activ e PriLOSEC OTC 20 mg 1 daily ORAL PRILOSEC OTC 03/03/190003/1900 Active Vitamin D3 Unknown SIG ORAL VITAMIN D3 Active Social History Tobacco Use: Social History Observation Description Date Details (start date - stop date) Never Smoker NA - NA Smoking History Question Answer Notes Smoking Status NonSmoker Problems Problem Type SNOMED Code ICD Code Onset Dates Problem Status W/U Status Risk Notes Problem [id number] Contusion of l eft thumb with damage to nail, initial encounter (S60.112A) Activeconfirmed Plan Of Treatment No Information Insurance Providers Payer Name Payer Address Payer Phone Subscriber Number Group Number Insured Name Patient Relationship to Insured Coverage Start Date Coverage End Date [employer] Insurance [address] RAJESH ALANIS [id number] PRISCILA CABRALES Self - patient is the insured Medical (General) History Medical History History ICD Code Do you have a CPAP machine?: Yes Do you use the CPAP machine?: YesDo you have any dental problems i.e. Broken, loose, or chipped teeth, absess, gum disease?: NoHave you been seen by a dentist in the last year?: YesLatex Allergy: NoDrug Allergies: : YesAllergies: PenecillanBariatric Surgery:: NoHave you been in close contact with someone who has had MRSA within the last year?: NoHave you ever had or presently have MRSA?: NoAre you a healthcare worker?: Yes
--- NOTE | 2025-01-04 17:25 | MM_ITS ---
Patient Name: PRISCILA CABRALES MR#: [id number] : 1960 Exam Date: 01/04/2025 Ordering Doctor: SENIA DICKENS RADIOLOGY REPORT PROCEDURE: MM TOMOSYNTHESIS SCREENING BI COMPARISON: MG MAMM SCREEN ISRA W CAD, 10/16/2023. MG MAMM SCREEN ISRA W CAD, 04/10/2022. MG MAMM SCREEN ISRA W CAD, 04/05/2020. INDICATIONS: Screening Calculator Name NCI Breast Cancer Risk Assessment Tool 5 Year Breast Cancer Risk 1.20% Lifetime Breast Cancer Risk 5.50% Personal Breast Cancer No Personal Ovarian Cancer No Treatments None Family Cancers None LOCATION: [facility] BREAST COMPOSITION: There are scattered areas of fibroglandular density. FINDINGS: DIAGNOSTIC CATEGORY 2--BENIGN FINDING. NO CHANGE FROM COMPARISON. RIGHT BREAST: No significant suspicious finding. Similar focal asymmetries are present. Benign-appearing calcifications are redemonstrated. LEFT BREAST: No significant suspicious finding. Similar focal asymmetries are present. RECOMMENDATIONS: ROUTINE MAMMOGRAM AND CLINICAL EVALUATION IN 12 MONTHS. Dictated by: Jevon Espino MD on 01/11/2025 at 10:53 Approved by: Jevon Espino MD on 01/11/2025 at 11:01
== END 2025-01-04 16:58 | disposition home or self-care (01) ==
PROVIDERS: PCP Nurse Practitioner; Visit Provider Nurse Practitioner
DX: Z12.31 Encounter for screening mammogram for malignant neoplasm of breast (principal)
CPT/HCPCS: 77063; 77067